=== PATIENT | male | born 1955 | race Caucasian/White ===

== ENCOUNTER 2024-11-04 13:28 | Emergency (ER) | payer SELFPAY ==
[~2024-11-04] VITALS: Ht 185.4 cm; Wt 77.7 kg
[2024-11-04 13:33] VITALS: BP 106/78; PULSE 96; RESP 18; TEMP 97.4; O2SAT 97
[2024-11-04 14:56] LABS: Nucleated Red Blood Cells % 0.0 %
[2024-11-04 14:58] LABS: Hematocrit 32.8 % (41.0-53.0); Hemoglobin 11.5 g/dL (13.5-17.5); Mean Corpuscular Hemoglobin 35.8 pg (28.0-32.0); Mean Corpuscular Volume 102.4 fL (80.0-100.0)
[2024-11-04 15:14] LABS: Alkaline Phosphatase 80 U/L (46-116); Anion Gap 3 (5-15); BUN/Creatinine Ratio 10.1 (10.0-20.0); Bilirubin, Total 0.8 mg/dL (0.2-1.0); Blood Urea Nitrogen 14 mg/dL (9-23); Carbon Dioxide 24 mmol/L (20-31); Lipase 22 U/L (12-53); Potassium 4.1 mmol/L (3.5-5.1); Sodium 138 mmol/L (136-145); Total Protein 6.8 g/dL (5.7-8.2)
[2024-11-04 15:16] LABS: Alanine Aminotransferase < 9 U/L (7-40); Albumin 2.7 g/dL (3.2-4.8); Calcium 8.3 mg/dL (8.7-10.4); Chloride 111 mmol/L (98-107); Glucose 111 mg/dL (74-106)
--- NOTE | 2024-11-04 15:37 | ED.PDOC ---
History of Present Illness HPI Comments A 69 YEAR OLD MALE PRESENTS TO THE ED WITH COMPLAINT OF ABDOMINAL DISTENTION THAT STARTED 2 MONTHS AGO. PATIENT REPORTS HISTORY OF PARACENTESIS WITH THE LAST ONE BEING DONE 5 WEEKS AGO AT [facility]. PATIENT MENTIONS HE HAD SWELLING TO LOWER EXTREMITIES THEN WELL BUT SINCE THE DRAINAGE, SWELLING TO LEGS HAS GONE DOWN. PATIENT DENIES MEDICAL HISTORY AND ADMITS TO TOBACCO AND ALCOHOL USE. PT REQUESTS A PARACENTESIS TO BE DONE TODAY. PATIENT DENIES FEVER, CHILLS, SHORTNESS OF BREATH, CHEST PAIN, NAUSEA, VOMITING, HEADACHE, OR OTHER COMPLAINTS. NO OTHER SYMPTOMS OR MODIFYING FACTORS AT THIS TIME. PATIENT IS ALERT, ORIENTED X 4, AND HAS STEADY GAIT. Chief Complaint: Abdominal Pain Time Seen by MD: 15:14 Reviewed Notes: Nurses Notes, Medications, Allergies Information Source: Patient Mode of Arrival: Wheelchair Timing: Hours Duration: Since onset Medication Refill: For: Other (REQUESTS PARACENTESIS ) Past Medical History PAST MEDICAL HISTORY: Liver Surgical History: Unknown Family History Family History: Reviewed,noncontributory to illness, Unknown Social History Smoker: Cigarettes Alcohol: Heavy Drugs: Denies Drug Use Lives In: Home Constitutional: denies: chills, diaphoresis, fatigue, fever, malaise, sweats, weakness, others EENTM: denies: blurred vision, double vision, ear bleeding, ear discharge, ear drainage, ear pain, ear ringing, eye pain, eye redness, hearing loss, mouth pain, mouth swelling, nasal discharge, nose bleeding, nose congestion, nose pain, photophobia, tearing, throat pain, throat swelling, voice changes, others Respiratory: denies: cough, hemoptysis, orthopnea, SOB at rest, shortness of breath, SOB with excertion, stridor, wheezing, others Cardiovascular: denies: chest pain, dizzy spells, diaphoresis, Dyspnea on exertion, edema, irregular heart beat, left arm pain, lightheadedness, palpitations, PND, syncope, others Gastrointestinal: reports: abdomen distended; denies: abdominal pain, blood streaked bowels, constipated, diarrhea, dysphagia, difficulty swallowing, hematemesis, melena, nausea, poor appetite, poor fluid intake, rectal bleeding, rectal pain, vomiting, others Genitourinary: denies: burning, dysuria, flank pain, frequency, hematuria, incontinence, penile discharge, penile sore, pain, testicle pain, testicle swelling, urgency, others Neurological: denies: dizziness, fainting, headache, left sided numbness, left sided weakness, numbness, paresthesia, pre-existing deficit, right sided numb ness, right sided weakness, seizure, speech problems, tingling, tremors, weakness, others Musculoskeletal: denies: back pain, gout, joint pain, joint swelling, muscle pain, muscle stiffness, neck pain, others Integumetry: denies: bruises, change in color, change in hair/nails, dryness, laceration, lesions, lumps, rash, wounds, others Allergic/Immunocompromised: denies: Difficulty Healing, Frequent Infections, Hives, Itching, others Hematologic/Lymphatic: denies: anemia, blood clots, easy bleeding, easy bruising, swollen glands, others Endocrine: denies: excessive hunger, excessive sweating, excessive thirst, excessive urination, flushing, intolerance to cold, intolerance to heat, unexplained weight gain, unexplained weight loss, others Psychiatric: denies: anxiety, bipolar disorder, depression, hopeless, panic disorder, schizophrenia, sleepless, suicidal, others All Other Systems: Reviewed and Negative Physical Exam General Appearance: No Apparent Distress, Normal HEENT: Normal ENT Inspection, PERRL/EOMI, Pharynx Normal, TMs Normal Neck: Full Range of Motion, Non-Tender, Normal, Normal Inspection Respiratory: Chest Non-Tender, Lungs Clear, No Accessory Muscle Use, No Respiratory Distress, Normal Breath Sounds Cardiovascular: No Edema, No JVD, No Murmur, No Gallop, Normal Peripheral Pulses, Regular Rate/Rhythm Breast Exam: Deferred Gastrointestinal: Distended (GENERAL ABD WITH TENDERNESS, NO GUARDING AND REBOUND TENDERNESS. ), No Organomegaly, No Pulsatile Mass, Normal Bowel Sounds, Soft Genitalia: Deferred Pelvic: Deferred Rectal: Deferred Extremities: No calf tenderness, Normal capillary refill, Normal inspection, Normal range of motion, Non-tender, No pedal edema Musculoskeletal : Apperance: Normal Neurologic: Alert, data conversion developer II-XII nml as Tested, No Motor Deficits, Normal Affect, Normal Mood, No Sensory Deficits Cerebellar Function: Normal Reflexes: Normal Skin: Dry, Normal Color, Warm Peripheral Pulses: 2+ carotid (R), 2+ carotid (L) Lymphatic: No Adenopathy Was a procedure done? Was a procedure done?: No Differential Dx Considerations may include: LIVER CIRRHOSIS, ASCITES , PARACENTESIS X-Ray, Labs, Meds, VS Vital Signs Date Time Temp Pulse Resp B/P (MAP) Pulse Ox O2 Delivery O2 Flow Rate FiO2 11/04/24 13:33 97.4 96 18 106/78 97 97.4 Lab Test 11/04/24 14:34 11/04/24 13:41 Range/Units White Blood Count 4.8 4.4-10.8 10^3/uL Red Blood Count 3.20 L 4.5-5.90 10^6/uL Hemoglobin 11.5 L 13.5-17.5 g/dL Hematocrit 32.8 L 41.0-53.0 % Mean Corpuscular Volume 102.4 H 80.0-100.0 fL Mean Corpuscular Hemoglobin 35.8 H 28.0-32.0 pg Mean Corpuscular Hemoglobin Concent 34.9 32.0-36.0 g/dL Red Cell Distribution Width 13.6 11.8-14.3 % Platelet Count 303 140-450 10^3/uL Mean Platelet Volume 7.0 6.9-10.8 fL Neutrophils (%) (Auto) 64.0 37.0-80.0 % Lymphocytes (%) (Auto) 14.1 10.0-50.0 % Monocytes (%) (Auto) 16.0 H 0.0-12.0 % Eosinophils (%) (Auto) 4.6 0.0-7.0 % Basophils (%) (Auto) 1.3 0.0-2.0 % Neutrophils # (Auto) 3.1 1.6-8.6 10 ^3/uL Lymphocytes # (Auto) 0.7 0.4-5.4 10 ^3/uL Monocytes # (Auto) 0.8 0-1.3 10 ^3/uL Eosinophils # (Auto) 0.2 0-0.8 10 ^3/uL Basophils # (Auto) 0.1 0-0.2 10 ^3/uL Nucleated Red Blood Cells 0.0 % Sodium Level 138 136-145 mmol/L Potassium Level 4.1 3.5-5.1 mmol/L Chloride Level 111 H 98-107 mmol/L Carbon Dioxide Level 24 20-31 mmol/L Anion Gap 3 L 5-15 Blood Urea Nitrogen 14 9-23 mg/dL Creatinine 1.38 H 0.700-1.30 mg/dL Glomerular Filtration Rate Calc 55 >90 mL/min BUN/Creatinine Ratio 10.1 10.0-20.0 Serum Glucose 111 H 74-106 mg/dL Calcium Level 8.3 L 8.7-10.4 mg/dL Total Bilirubin 0.8 0.2-1.0 mg/dL Aspartate Amino Transferase (AST) 18 13-40 U/L Alanine Aminotransferase (ALT) < 9 7-40 U/L Alkaline Phosphatase 80 46-116 U/L Total Protein 6.8 5.7-8.2 g/dL Albumin 2.7 L 3.2-4.8 g/dL Lipase 22 12-53 U/L POC Glucose 130 H 70-106 mg/dl X-Ray, Labs, Meds, VS Comment EXTERNAL MEDICAL RECORDS REVIEWED: [NONE] INDEPENDENT HISTORIANS: [NONE] SOCIAL DETERMINANTS OF HEALTH: [NONE] LABS ORDERED: CBC, CMP AND LIPASE REVIEWED AND INTERPRETED RESULTS: PENDING IMAGING ORDERED: NONE TREATMENTS ORDERED: NONE PROCEDURES PERFORMED: NONE CRITICAL CARE TIME: NONE SHARED DECISION MAKING: CONSULT WITH RADIOLOGY AND DR. KARIMI FOR PARACENTESIS BUT IS UNABLE TO BE DONE TODAY. PATIENT HAS TO BE ADMITTED TO THE HOSPITAL THEY ARE NOT AVAILABLE TO PERFORM PROCEDURE TODAY. DISCUSSED WITH PATIENT HOWEVER HE DOES NOT WANT TO BE ADMITTED TO THE HOSPITAL AND DECIDED TO SIGN AMA. ALL QUESTIONS ADDRESSED AT TIME OF CARE. Time of 1ST Reevaluation: 15:27 Reevaluation 1ST: Unchanged Patient Education/Counseling: Diagnosis, Treatment, Prognosis Family Education/Counseling: No Family Present SEPSIS Sepsis Screen Date sepsis recognized/suspect: Nov 04, 2024 Time Sepsis recognized/suspect: 1337 Recent Procedure: No (n) On Antibiotic Therapy: No Respiratory Rate >20: No Heart Rate >90: No Temp<36 C (96.8 F) or >38.3 C: No SBP <90 or MAP <65 mmHG: No New Acute Mental Status Change: No Is the patient on CPAP, BIPAP,: No Physician Orders Urinalysis (11/04/24 14:24) Vital Signs Date Time Temp Pulse Resp B/P (MAP) Pulse Ox O2 Delivery O2 Flow Rate FiO2 11/04/24 13:33 97.4 96 18 106/78 97 97.4 Laboratory Tests Test 11/04/24 14:34 White Blood Count 4.8 10^3/uL (4.4-10.8) Departure 1 Departure Time of Disposition: 15:27 Impression: Primary Impression: Liver cirrhosis Qualified Codes: K70.31 - Alcoholic cirrhosis of liver with ascites Additional Impressions: Ascites Qualified Codes: K70.31 - Alcoholic cirrhosis of liver with ascites History of abdominal paracentesis Disposition: LEFT AGAINST MEDICAL ADVICE Condition: Fair Critical Care Note Critical Care Time?: No Stability Stability form required: No I personally scribed for EVON VAZQUEZ ([email or web address]) on 11/04/24 at 15:37. Electronically submitted by Nina Banuelos ([facility]). EVON VAZQUEZ Nov 04, 2024 15:37
== END 2024-11-04 16:13 | disposition left against medical advice (07) ==
LOC: ER 13:28
DX: K70.31 Alcoholic cirrhosis of liver with ascites (principal); F17.210 Nicotine dependence, cigarettes, uncomplicated; Z76.0 Encounter for issue of repeat prescription
CPT/HCPCS: 36415; 80053; 82947; 82962; 83690; 85025

== ENCOUNTER 2024-11-10 09:48 | Inpatient (IN) | payer OTHER, MEDICARE ==
[~2024-11-10] VITALS: Ht 185.4 cm; Wt 79.0 kg
--- NOTE | 2024-11-10 10:35 | ED.PDOC ---
GI ASSESSMENT HPI Comments This is a 69-year-old male with past medical history of alcohol use disorder, coronary artery disease (status post CABG), came to the hospital due to abdominal pain and distention. Per patient, 6 weeks back he had a paracentesis with a [facility], after discharge she was feeling better for 1 week but progressively developed abdominal distention and discomfort. He also reports of shortness of breaths, decreased oral intake and unintentional weight loss (around 55 point within last year). He denies fever, chest pain, cough, or any bowel/bladder habit changes. Past medical history: Coronary artery disease (status post CABG), alcohol use disorder Home meds: Does not take any medicine Social history: History of heavy alcohol use disorder, smokes cigarettes (60 pack year history), denies any other drug use Chief Complaint: Abdominal Pain Time Seen by MD: 09:53 Allergies: Coded Allergies: NO KNOWN ALLERGIES (Unverified , 11/10/24) Mode of Arrival: Wheelchair Past Medical History PAST MEDICAL HISTORY: CAD, Liver Surgical History: CABG, Unknown Family History Family History: Reviewed,noncontributory to illness, Unknown Social History Smoker: Cigarettes Alcohol: Heavy Drugs: Denies Drug Use Lives In: Home Constitutional: reports: fatigue, weakness; denies: chills, diaphoresis, fever, malaise, sweats, others EENTM: denies: blurred vision, double vision, ear bleeding, ear discharge, ear drainage, ear pain, ear ringing, eye pain, eye redness, hearing loss, mouth pain, mouth swelling, nasal discharge, nose bleeding, nose congestion, nose pain, photophobia, tearing, throat pain, throat swelling, voice changes, others Respiratory: reports: SOB at rest, shortness of breath; denies: cough, hemoptysis, orthopnea, SOB with excertion, stridor, wheezing, others Cardiovascular: denies: chest pain, dizzy spells, diaphoresis, Dyspnea on exertion, edema, irregular heart beat, left arm pain, lightheadedness, palpitations, PND, syncope, others Gastrointestinal: reports: abdomen distended, abdominal pain, nausea Genitourinary: denies: burning, dysuria, flank pain, frequency, hematuria, incontinence, penile discharge, penile sore, pain, testicle pain, testicle swelling, urgency, others Neurological: denies: dizziness, fainting, headache, left sided numbness, left sided weakness, numbness, paresthesia, pre-existing deficit, right sided numbness, right sided weakness, seizure, speech problems, tingling, tremors, weakness, others Musculoskeletal: denies: back pain, gout, joint pain, joint swelling, muscle pain, muscle stiffness, neck pain, others Integumetry: denies: bruises, change in color, change in hair/nails, dryness, laceration, lesions, lumps, rash, wounds, others Allergic/Immunocompromised: denies: Difficulty Healing, Frequent Infections, Hives, Itching, others Hematologic/Lymphatic: denies: anemia, blood clots, easy bleeding, easy bruising, swollen glands, others Psychiatric: denies: anxiety, bipolar disorder, depression, hopeless, panic disorder, schizophrenia, sleepless, suicidal, others Physical Exam General Appearance: Cachectic, Moderate Distress HEENT: Normal ENT Inspection, Pharynx Normal, TMs Normal Neck: Full Range of Motion, Non-Tender, Normal, Normal Inspection Respiratory: Chest Non-Tender, Lungs Clear, No Accessory Muscle Use, No Respiratory Distress, Normal Breath Sounds Cardiovascular: No Edema, No JVD, No Murmur, No Gallop, Normal Peripheral Pulses, Regular Rate/Rhythm Breast Exam: Deferred Gastrointestinal: Diffuse, Distended, Soft, Tenderness Genitalia: Deferred Pelvic: Deferred Rectal: Deferred Extremities: No calf tenderness, Normal capillary refill, Normal inspection, Normal range of motion, Non-tender, No pedal edema Neurologic: Alert, audio production engineer II-XII nml as Tested, No Motor Deficits, Normal Affect, Normal Mood, No Sensory Deficits Cerebellar Function: Normal Reflexes: Normal Skin: Dry, Normal Color, Warm Lymphatic: No Adenopathy Was a procedure done? Was a procedure done?: No GI differential Dx Differential Diagnosis: Hepatitis X-Ray, Labs, Meds, VS Vital Signs Date Time Temp Pulse Resp B/P (MAP) Pulse Ox O2 Delivery O2 Flow Rate FiO2 11/10/24 11:04 98.3 94 17 94/59 (71) 98 98.3 11/10/24 10:04 89 11/10/24 09:50 97.8 97 20 97/70 98 97.8 Lab Test 11/10/24 11:23 Range/Units White Blood Count 5.5 4.4-10.8 10^3/uL Red Blood Count 3.33 L 4.5-5.90 10^6/uL Hemoglobin 11.8 L 13.5-17.5 g/dL Hematocrit 33.7 L 41.0-53.0 % Mean Corpuscular Volume 101.4 H 80.0-100.0 fL Mean Corpuscular Hemoglobin 35.5 H 28.0-32.0 pg Mean Corpuscular Hemoglobin Concent 35.0 32.0-36.0 g/dL Red Cell Distribution Width 13.7 11.8-14.3 % Platelet Count 350 140-450 10^3/uL Mean Platelet Volume 6.7 L 6.9-10.8 fL Neutrophils (%) (Auto) 71.3 37.0-80.0 % Lymphocytes (%) (Auto) 11.0 10.0-50.0 % Monocytes (%) (Auto) 13.8 H 0.0-12.0 % Eosinophils (%) (Auto) 3.3 0.0-7.0 % Basophils (%) (Auto) 0.6 0.0-2.0 % Neutrophils # (Auto) 4.0 1.6-8.6 10 ^3/uL Lymphocytes # (Auto) 0.6 0.4-5.4 10 ^3/uL Monocytes # (Auto) 0.8 0-1.3 10 ^3/uL Eosinophils # (Auto) 0.2 0-0.8 10 ^3/uL Basophils # (Auto) 0 0-0.2 10 ^3/uL Nucleated Red Blood Cells 0.0 % Prothrombin Time 10.9 9.3-11.8 sec Prothrombin Time INR 1.03 0.9-1.15 Activated Partial Thromboplast Time 28.4 24.5-34.5 SEC Sodium Level 140 136-145 mmol/L Potassium Level 4.2 3.5-5.1 mmol/L Chloride Level 112 H 98-107 mmol/L Carbon Dioxide Level 26 20-31 mmol/L Anion Gap 2 L 5-15 Blood Urea Nitrogen 14 9-23 mg/dL Creatinine 1.44 H 0.700-1.30 mg/dL Glomerular Filtration Rate Calc 53 >90 mL/min BUN/Creatinine Ratio 9.7 L 10.0-20.0 Serum Glucose 98 74-106 mg/dL Calcium Level 8.7 8.7-10.4 mg/dL Total Bilirubin 1.2 H 0.2-1.0 mg/dL Aspartate Amino Transferase (AST) 19 13-40 U/L Alanine Aminotransferase (ALT) < 9 7-40 U/L Alkaline Phosphatase 79 46-116 U/L Ammonia Pending Total Protein 7.1 5.7-8.2 g/dL Albumin 2.9 L 3.2-4.8 g/dL Time of 1ST Reevaluation: 12:33 Reevaluation 1ST: Unchanged Patient Education/Counseling: Diagnosis, Treatment, Prognosis, Need For Follow Up Family Education/Counseling: Diagnosis, Treatment, Prognosis, Need For Follow Up Comments Patient came to the hospital due to abdominal pain and distention. Patient was vitally stable. CBC showed mild anemia. CBC showed no significant finding. CT scan of abdomen shows massive ascites Physical examination was significant for distended abdomen. Patient will be admitted for inpatient care, paracentesis and possible expert opinion SEPSIS Sepsis Screen Date sepsis recognized/suspect: Nov 10, 2024 Time Sepsis recognized/suspect: 950 Recent Procedure: No On Antibiotic Therapy: No Respiratory Rate >20: No Heart Rate >90: Yes Temp<36 C (96.8 F) or >38.3 C: No SBP <90 or MAP <65 mmHG: No New Acute Mental Status Change: No Is the patient on CPAP, BIPAP,: No Physician Orders Abdomen Limited (11/10/24 10:29) Ammonia (11/10/24 10:29) Ct Ab Pel Wo Con-No Oral Or Iv (11/10/24 10:36) Paracentesis (11/10/24 10:47) Vital Signs Date Time Temp Pulse Resp B/P (MAP) Pulse Ox O2 Delivery O2 Flow Rate FiO2 11/10/24 11:04 98.3 94 17 94/59 (71) 98 98.3 11/10/24 10:04 89 11/10/24 09:50 97.8 97 20 97/70 98 97.8 Laboratory Tests Test 11/10/24 11:23 White Blood Count 5.5 10^3/uL (4.4-10.8) Departure 1 Departure Time of Disposition: 12:34 Impression: Primary Impression: Liver cirrhosis Additional Impression: Ascites Disposition: ADMITTED INPATIENT Admit to: Med Surg Condition: Guarded Critical Care Note Critical Care Time?: No Stability Stability form required: No Heart Score Heart Score: Heart Score Response (Comments) Value History N/A 0 EKG N/A 0 Age N/A 0 Risk Factors N/A 0 Troponin N/A 0 Total 0 JAYDEN WELLS Nov 10, 2024 10:35
--- NOTE | 2024-11-10 10:40 | ECG ---
[facility] Test Date: 2024-11-10 Test Time: 10:04:54 Pat Name: MELIA LEMUS Department: ED Room: Gender: M Concrete Inspector: dr PORTER: 1955 Requested By: JAYDEN WELLS Order Number: [id number] Reading MD: Measurements Intervals [place] Rate: 89 P: -20 MN: 204 QRS: 78 QRSD: 106 T: 50 QT: 395 QTc: 481 Interpretive Statements Sinus rhythm Low voltage, extremity and precordial leads Borderline prolonged QT interval Please click the below link to view image of tracing.
--- NOTE | 2024-11-10 10:57 | DVH ---
Limited Abdominal Ultrasound - Ascites Evaluation Clinical History: ascitis Comparison: None Technique/Findings/Impression: Limited sonographic evaluation of the abdomen was performed to assess for ascites. There is large ascites detected.
--- NOTE | 2024-11-10 11:34 | DVH ---
Exam: CT CT AB PEL WO CON-NO ORAL OR IV History: Ascitis, liver mass Comparison Study: Ultrasound of the abdomen performed same date. Technique: Multidetector spiral CT of the abdomen and pelvis was performed from lung bases to pubic s ymphysis. Imaging was performed without intravenous contrast. Coronal and sagittal multiplanar reform ats were obtained from the axial data set by the technologist. Radiation Dose : 1. Abdomen/Pelvis: CTDIvol 18.49 mGy, DLP 1085.5 mGy*cm. Findings: Evaluation of vasculature and solid organs is limited due to lack of intravenous contrast use. Lung Bases: Lung bases are clear. Visualized portions of the heart and pericardium are unremarkable. Liver: The liver is small and nodular in contour. Limited evaluation for hepatic mass without intrave nous contrast. Gallbladder and Biliary Tree: The gallbladder is surgically absent. No intrahepatic or extrahepatic b iliary ductal dilatation. There is pneumobilia. Spleen: Unremarkable Pancreas: The pancreas is grossly unremarkable. Adrenal Glands: Unremarkable Kidneys: Kidneys are unremarkable without calculi or hydronephrosis. GI tract: There is a small hiatal hernia. No evidence of small bowel wall thickening or abnormal dila tation to suggest bowel obstruction. Collapse versus mucosal thickening of the sigmoid colon. No find ings to suggest acute appendicitis. Peritoneum/mesentery/retroperitoneum. No evidence of free intraperitoneal air. There is large volume ascites. Lymph nodes: No evidence of lymphadenopathy. Abdominal Wall: There are atherosclerotic calcifications in the aorta. Vasculature: The visualized abdominal aorta is normal in size and caliber. Evaluation of abdominal a nd pelvic vessels is limited due to lack of intravenous contrast. There are atherosclerotic calcifica tions in the aorta. Urinary Bladder: Grossly unremarkable for degree of distention. Pelvic Organs: Unremarkable Musculoskeletal: No aggressive focal bony lesions, acute fractures or dislocation. There are degenera tive changes in the lumbar spine at L5-S1. Status post median sternotomy. IMPRESSION: 1. Cirrhosis. 2. Limited evaluation for hepatic mass without intravenous contrast. 3. Mucosal thickening of the colon may be related to underdistention or portal colopathy. Colitis is not excluded. 4. Large volume ascites. 5. Cholecystectomy. Pneumobilia which can be seen post cholecystectomy.
[2024-11-10 11:38] LABS: Hematocrit 33.7 % (41.0-53.0); Hemoglobin 11.8 g/dL (13.5-17.5); Mean Corpuscular Hemoglobin 35.5 pg (28.0-32.0); Mean Corpuscular Volume 101.4 fL (80.0-100.0); Nucleated Red Blood Cells % 0.0 %
[2024-11-10 11:54] LABS: INR 1.03 (0.9-1.15); Partial Thromboplastin Time 28.4 SEC (24.5-34.5); Prothrombin Time 10.9 sec (9.3-11.8)
[2024-11-10 11:56] LABS: Alkaline Phosphatase 79 U/L (46-116); Anion Gap 2 (5-15); BUN/Creatinine Ratio 9.7 (10.0-20.0); Blood Urea Nitrogen 14 mg/dL (9-23); Carbon Dioxide 26 mmol/L (20-31); Glucose 98 mg/dL (74-106); Potassium 4.2 mmol/L (3.5-5.1); Sodium 140 mmol/L (136-145); Total Protein 7.1 g/dL (5.7-8.2)
[2024-11-10 11:57] LABS: Alanine Aminotransferase < 9 U/L (7-40); Albumin 2.9 g/dL (3.2-4.8); Bilirubin, Total 1.2 mg/dL (0.2-1.0); Calcium 8.7 mg/dL (8.7-10.4); Chloride 112 mmol/L (98-107)
--- NOTE | 2024-11-10 15:25 | DVHHP2 ---
History of Present Illness Reason for Visit: Abdominal pain History of Present Illness 69-year-old male past medical history alcohol use last use two months ago he has been diagnosed with liver cirrhosis he has a history CAD status post CABG unsure his other medical problems he denies any other further problems but he states it at [place] five weeks ago he had a paracentesis he comes here requesting paracentesis in wants to be discharged home when speaking with the patient he does not know that he have any liver masses or any abdominal issues in the past he denies any chest pain in his shortness of the breath but his information provided to me he is very limited. He states he has a lot of fluid in his abdomen he has not did not any follow up with GI on discharge he is currently not taking any medications when evaluating patient's labs and imaging looks like hemoglobin was 11.8 33.7 creatinine was 1.44 total bili is 1.2 albumin was low at 2.9 otherwise CBC and CMP unremarkable CT scan abdomen pelvis shows cirrhosis hepatic mass colitis large vomiting volume ascites which I we will admit and ask for paracentesis we will also do a liver ultrasound to evaluate the mass and order some labs. We will admit for further workup and care Past Medical History See HPI above Past Surgical History See HPI above Family History Reviewed, non-contributory to the management of this case. Past Social History The patient lives at home, denies smoking, alcohol or illicit drugs abuse. Review of Systems Constitutional: No: Fever, Chills, Sweats, Weakness, Malaise, Other Eyes: No: Pain, Vision change, Conjunctivae inflammation, Eyelid inflammation, Other, Redness ENT: No: Ear pain, Ear discharge, Nose pain, Nose discharge, Nose congestion, Mouth pain, Mouth swelling, Throat pain, Throat swelling, Other Respiratory: No: Cough, Dry, Shortness of breath, SOB with excertion, Wheezing, Hemoptysis, Pleuritic Pain, Sputum, Wheezing, Other Cardiovascular: No: Chest Pain, Palpitations, Orthopnea, Paroxysmal Noc. Dyspnea, Edema, Lt Headedness, Other Gastrointestinal: Abdominal Pain; No: Nausea, Vomiting, Diarrhea, Constipation, Melena, Hematochezia, Other Genitourinary: No Dysuria, No Frequency, No Incontinence, No Hematuria, No Retention, No Other Musculoskeletal: No: other, neck pain, shoulder pain, arm pain, back pain, hand pain, leg pain, foot pain Skin: No: Rash, Lesions, Jaundice, Bruising, Other Neurological: No: Weakness, Numbness, Incoordination, Change in speech, Confusion, Seizures, Other Allergies: Coded Allergies: NO KNOWN ALLERGIES (Unverified , 11/10/24) Exam Vital Signs Vital Signs Date Time Temp Pulse Resp B/P (MAP) Pulse Ox O2 Delivery O2 Flow Rate FiO2 11/10/24 11:04 98.3 94 17 94/59 (71) 98 98.3 General Appearance: Alert, Oriented X3, Cooperative, Other (Angry and thing in his appearance) HEENT: Atraumatic, PERRLA, EOMI, Mucous membr. moist/pink Respiratory: Clear to auscultation, Normal air movement Cardiovascular: Regular rate, Normal S1, Normal S2, No murmurs Abdominal: Other (Abdomen Bhupinder slightly for the stay in the no guarding no rebound tenderness) Extremities: No clubbing, No cyanosis, No edema, Normal pulses, No tenderness/swelling Skin: No rashes, No breakdown, No significant lesion Neuro: Other (Neuro nonfocal) Psych/Mental Status: Mental status NL, Mood NL Labs/Xrays CT scan abdomen pelvis shows cirrhosis hepatic mass colitis large volume ascites Ascites ultrasound shows large volume I reviewed labs, imaging CT scan abdomen pelvis, EKG and all diagnostic studies on this patient from ED records and the medical chart Labs Test 11/10/24 11:23 Range/Units White Blood Count 5.5 4.4-10.8 10^3/uL Red Blood Count 3.33 L 4.5-5.90 10^6/uL Hemoglobin 11.8 L 13.5-17.5 g/dL Hematocrit 33.7 L 41.0-53.0 % Mean Corpuscular Volume 101.4 H 80.0-100.0 fL Mean Corpuscular Hemoglobin 35.5 H 28.0-32.0 pg Mean Corpuscular Hemoglobin Concent 35.0 32.0-36.0 g/dL Red Cell Distribution Width 13.7 11.8-14.3 % Platelet Count 350 140-450 10^3/uL Mean Platelet Volume 6.7 L 6.9-10.8 fL Neutrophils (%) (Auto) 71.3 37.0-80.0 % Lymphocytes (%) (Auto) 11.0 10.0-50.0 % Monocytes (%) (Auto) 13.8 H 0.0-12.0 % Eosinophils (%) (Auto) 3.3 0.0-7.0 % Basophils (%) (Auto) 0.6 0.0-2.0 % Neutrophils # (Auto) 4.0 1.6-8.6 10 ^3/uL Lymphocytes # (Auto) 0.6 0.4-5.4 10 ^3/uL Monocytes # (Auto) 0.8 0-1.3 10 ^3/uL Eosinophils # (Auto) 0.2 0-0.8 10 ^3/uL Basophils # (Auto) 0 0-0.2 10 ^3/uL Nucleated Red Blood Cells 0.0 % Prothrombin Time 10.9 9.3-11.8 sec Prothrombin Time INR 1.03 0.9-1.15 Activated Partial Thromboplast Time 28.4 24.5-34.5 SEC Sodium Level 140 136-145 mmol/L Potassium Level 4.2 3.5-5.1 mmol/L Chloride Level 112 H 98-107 mmol/L Carbon Dioxide Level 26 20-31 mmol/L Anion Gap 2 L 5-15 Blood Urea Nitrogen 14 9-23 mg/dL Creatinine 1.44 H 0.700-1.30 mg/dL Glomerular Filtration Rate Calc 53 >90 mL/min BUN/Creatinine Ratio 9.7 L 10.0-20.0 Serum Glucose 98 74-106 mg/dL Calcium Level 8.7 8.7-10.4 mg/dL Total Bilirubin 1.2 H 0.2-1.0 mg/dL Aspartate Amino Transferase (AST) 19 13-40 U/L Alanine Aminotransferase (ALT) < 9 7-40 U/L Alkaline Phosphatase 79 46-116 U/L Ammonia < 10 L 11-32 umol/L Total Protein 7.1 5.7-8.2 g/dL Albumin 2.9 L 3.2-4.8 g/dL SEPSIS Sepsis Screen Date sepsis recognized/suspect: Nov 10, 2024 Time Sepsis recognized/suspect: 950 Recent Procedure: No On Antibiotic Therapy: No Respiratory Rate >20: No Heart Rate >90: Yes Temp<36 C (96.8 F) or >38.3 C: No SBP <90 or MAP <65 mmHG: No New Acute Mental Status Change: No Is the patient on CPAP, BIPAP,: No Physician Orders Abdomen Limited (11/10/24 10:29) Ct Ab Pel Wo Con-No Oral Or Iv (11/10/24 10:36) Admit (11/10/24 15:20) Allergies (11/10/24 15:20) Code Status (11/10/24 15:20) 2 Gm Sodium Diet (11/10/24 Dinner) Ondansetron Hcl (Zofran) (11/10/24 15:30) Docusate Sodium Capsule (Colace Capsule) (11/10/24 15:30) Complete Blood Count (11/11/24 04:00) Comprehensive Metabolic Panel (11/11/24 04:00) Condition: Stable (11/10/24 15:20) BRP (11/10/24 15:20) Morphine Sulfate Injection (11/10/24 15:30) Sequential Compression Device (11/10/24 ) Nitroglycerin Sublingual (Ntrostat Subli (11/10/24 15:30) Stat Ekg For Chest Pain (11/10/24 15:20) Notify Md Of Changes From Base (11/10/24 15:20) Showroom Executive Director For 24 Hours (11/10/24 15:20) Emergency Dysrhythmia Protocol (11/10/24 15:20) Rhythm Strips Once Every Shift (11/10/24 15:20) Oxygen By Nasal Cannula (11/10/24 15:20) Paracentesis (11/10/24 15:20) Lactate Dehydrogenase, Fluid (11/10/24 15:20) Protein, Body Fluid (11/10/24 15:20) Vital Signs Date Time Temp Pulse Resp B/P (MAP) Pulse Ox O2 Delivery O2 Flow Rate FiO2 11/10/24 11:04 98.3 94 17 94/59 (71) 98 98.3 11/10/24 10:04 89 11/10/24 09:50 97.8 97 20 97/70 98 97.8 Laboratory Tests Test 11/10/24 11:23 White Blood Count 5.5 10^3/uL (4.4-10.8) Assessment/Plan Assessment/Plan acute on chronic etoh cirrhosis with ascites us found large ascites Ordered paracentesis with cultures by IR Strict I/O's Monitor Hepatic panel Continue Lasix and spirolactone Ordered Protonix Acute abdominal pain likely from ascites found on us ordered morphine as needed for pain acute hepatic mass found on ct scan ordered liver us fu results ordered alpha feta protein cea and ca 125 acute colitiis ordered zosyn for now acute low albumin ordered albumin for now Acute NERIS Strict I&Os Urine sodium and creatinine to check FENA If worsening consider renal consult chronic problems Liver cirrhosis from etoh use cad s/p cabg fen/ppx protonix diet no dvt ppx since pending procedure scd hl plan admit to tele for ascites and abd pain Plan discussed with: Patient My Orders Orders - KEMI PERRY DNP Procedure Category Date Status Time Admit ADMIT 11/10/24 Verified 15:20 Allergies [facility] 11/10/24 Verified 15:20 Code Status CODE 11/10/24 Verified 15:20 2 Gm Sodium Diet DIET 11/10/24 Verified Dinner Ondansetron Hcl PHA 11/10/24 Verified (Zofran) 15:30 Docusate Sodium PHA 11/10/24 Verified Capsule (Colace 15:30 Complete Blood Count LAB 11/11/24 Verified 04:00 Comprehensive LAB 11/11/24 Verified Metabolic Panel 04:00 Condition: Stable [facility] 11/10/24 Verified 15:20 BRP [facility] 11/10/24 Verified 15:20 Morphine Sulfate PHA 11/10/24 Verified Injection 15:30 Sequential [facility] 11/10/24 Verified Compression Device Nitroglycerin [facility] 11/10/24 Verified Sublingual (Ntrostat 15:30 Stat Ekg For Chest [facility] 11/10/24 Verified Pain 15:20 Notify Md Of Changes [facility] 11/10/24 Verified From Base 15:20 Showroom Executive Director For [facility] 11/10/24 Verified 24 Hours 15:20 Emergency Dysrhythmia [facility] 11/10/24 Verified Protocol 15:20 Rhythm Strips Once [facility] 11/10/24 Verified Every Shift 15:20 Oxygen By Nasal RT 11/10/24 Verified Cannula 15:20 Paracentesis US 11/10/24 Verified 15:20 Lactate LAB 11/10/24 Verified Dehydrogenase, Fluid 15:20 Protein, Body Fluid LAB 11/10/24 Verified 15:20 Date of Service: Nov 10, 2024 Billing Provider: KEMI PERRY DNP Common Visit Codes: [id number] INP/OBS CARE (HIGH) KEMI PERRY DNP Nov 10, 2024 15:25
[2024-11-10] MEDS ORDERED: DOCUSATE SOD 100 MG CAP PO PRN (15:30)
[2024-11-10] MEDS ORDERED: ONDANSETRON HCL 4 MG/2 ML VIAL IV PRN (15:30)
[2024-11-10] MEDS ORDERED: MORPHINE SULFATE INJ 2 MG/ml SYRG IV PRN (15:30)
[2024-11-10] MEDS ORDERED: NITROGLYCERIN 0.4 MG SL TAB SL PRN (15:30)
--- NOTE | 2024-11-10 16:52 | DVH ---
ULTRASOUND ABDOMEN, LIMITED RIGHT UPPER QUADRANT: REASON FOR EXAM: eval for liver mass found on ct scan TECHNIQUE: Real-time sector scans in the transverse and longitudinal planes were obtained through th e right upper quadrant of the abdomen. FINDINGS: The liver is echogenic and nodular consistent with cirrhosis. There is no intrahepatic no r extrahepatic biliary ductal dilatation. No hepatic mass is identified. The common bile duct is not seen. The gallbladder is absent. There is no sonographic johnson's sign. The visualized portion of the pancreas is unremarkable. The right kidney measures 8.6 cm. No hydronephrosis or nephrolithiasis is identified. There is no e vidence of right renal mass or cyst. The visualized portions of the abdominal aorta demonstrate no evidence of aneurysmal dilatation. The visualized inferior vena cava is unremarkable. There is moderate ascites. IMPRESSION: Cirrhotic liver morphology. No hepatic mass is identified with ultrasound. Moderate ascites
[2024-11-10 18:20] VITALS: PULSE 93; RESP 19; O2SAT 100
[2024-11-10 19:30] VITALS: PULSE 92; RESP 21; O2SAT 96
[2024-11-10] MEDS: ALBUMIN 25% 100 ML IV SCH (19:48)
[2024-11-10] MEDS: PIPERACILLIN-TAZOB 3.375GM 100 ML IV ONE (20:50)
[2024-11-10 21:50] VITALS: BP 103/66; PULSE 84; RESP 16; TEMP 98; O2SAT 91
[2024-11-10 22:40] VITALS: PULSE 84; RESP 16; O2SAT 91
[2024-11-11] VITALS (7 sets, daily range): BP systolic 77–98; BP diastolic 50–72; PULSE 65–86; RESP 14–19; TEMP 36.8; O2SAT 95–98
[2024-11-11 04:28] LABS: Hematocrit 26.3 % (41.0-53.0); Hemoglobin 9.5 g/dL (13.5-17.5); Mean Corpuscular Hemoglobin 39.9 pg (28.0-32.0); Mean Corpuscular Volume 110.3 fL (80.0-100.0); Nucleated Red Blood Cells % 0.1 %
[2024-11-11 04:43] LABS: Alkaline Phosphatase 57 U/L (46-116); Anion Gap 3 (5-15); Carbon Dioxide 22 mmol/L (20-31); Potassium 4.1 mmol/L (3.5-5.1); Sodium 139 mmol/L (136-145)
[2024-11-11 04:44] LABS: BUN/Creatinine Ratio 8.4 (10.0-20.0); Bilirubin, Total 0.9 mg/dL (0.2-1.0); Blood Urea Nitrogen 11 mg/dL (9-23); Chloride 114 mmol/L (98-107)
[2024-11-11 04:45] LABS: Alanine Aminotransferase < 9 U/L (7-40); Albumin 2.3 g/dL (3.2-4.8); Calcium 8.0 mg/dL (8.7-10.4); Total Protein 5.4 g/dL (5.7-8.2)
[2024-11-11 04:51] LABS: Glucose 76 mg/dL (74-106)
[2024-11-11] MEDS: PIPERACILLIN-TAZOB 3.375GM 100 ML IV SCH (05:00)
[2024-11-11 05:04] LABS: Macrocytosis Slight
--- NOTE | 2024-11-11 11:31 | DVHPN2 ---
Subjective 69-year-old male who was admitted for abdominal distention, he says he wants to have paracentesis He has a done 2 months ago at [facility] for the 1st time Changes from previous H/P or p: Changes Eyes: No Pain, No Vision change, No Conjunctivae inflammation, No Eyelid inflammation, No Other, No Redness ENT: No Ear pain, No Ear discharge, No Nose pain, No Nose discharge, No Nose congestion, No Mouth pain, No Mouth swelling, No Throat pain, No Throat swelling, No Other Cardiovascular: No Chest Pain, No Palpitations, No Orthopnea, No Paroxysmal Noc. Dyspnea, No Edema, No Lt Headedness, No Other Respiratory: No Cough, No Dry, No Shortness of breath, No SOB with excertion, No Wheezing, No Hemoptysis, No Pleuritic Pain, No Sputum, No Other Gastrointestinal: No Nausea, No Vomiting; Abdominal Pain; No Diarrhea, No Constipation, No Melena, No Hematochezia, No Other Genitourinary: No Dysuria, No Frequency, No Incontinence, No Hematuria, No Retention, No Other Musculoskeletal: No other, No neck pain, No shoulder pain, No arm pain, No back pain, No hand pain, No leg pain, No foot pain Skin: No Rash, No Lesions, No Jaundice, No Bruising, No Other Objective Vitals Vital Signs Date Time Temp Pulse Resp B/P (MAP) Pulse Ox O2 Delivery O2 Flow Rate FiO2 11/11/24 08:37 97.7 77 19 77/50 (59) 98 97.7 11/11/24 08:00 Room Air* 0 21 Intake/Output Intake and Output 11/11/24 07:00 Intake Total 300 ml Output Total 200 ml Balance 100 ml Intake Oral 200 ml IV Total 100 ml Output Urine Total 200 ml General Appearance: Alert, Oriented X3, Cooperative, No acute distress Lungs: Clear to auscultation, Normal air movement Cardiovascular: Regular rate, Normal S1, Normal S2 Abdomen: Normal bowel sounds, Soft, No tenderness Extremities: No edema Medications Current Medications Medications Dose Ordered Sig/Laura Route Start Time Stop Time Status Last Admin Dose Admin Ondansetron HCl 4 mg Q4HP PRN IV 11/10/24 15:30 Docusate Sodium 100 mg BIDPRN PRN PO 11/10/24 15:30 Morphine Sulfate 2 mg Q4HPRN PRN IV 11/10/24 15:30 Nitroglycerin 0.4 mg Q5MINP PRN SL 11/10/24 15:30 Piperacillin Sod/ Tazobactam Sod 100 ml @ 25 mls/hr Q8H IV 11/11/24 04:00 11/11/24 05:00 25 MLS/HR Laboratory Results Laboratory Tests 11/11/24 03:33 Chemistry Test 11/11/24 03:33 Albumin 2.3 g/dL (3.2-4.8) L Calcium Level 8.0 mg/dL (8.7-10.4) L Total Protein 5.4 g/dL (5.7-8.2) L LFT Test 11/11/24 03:33 Alanine Aminotransferase (ALT) < 9 U/L (7-40) Alkaline Phosphatase 57 U/L (46-116) Aspartate Amino Transferase (AST) 17 U/L (13-40) Total Bilirubin 0.9 mg/dL (0.2-1.0) Assessment/Plan Assessment/Plan Liver cirrhosis Ascites Abdominal pain and distention due to ascites Hypoalbuminemia Acute kidney injury Chronic anemia , microcytic Alcoholic liver disease Plan Consult Radiology for paracentesis Albumin Monitor closely Discharge planning once the paracentesis is done Full code Advance directives discussed for 16 minute Plan discussed with: Patient My Orders Orders - BEL LORENZO MD Procedure Category Date Status Time * Radiologist Consult CONS 11/11/24 Transmitted 10:28 Date of Service: Nov 11, 2024 Billing Provider: BEL LORENZO MD Common Visit Codes: [id number] INP/OBS CARE(HIGH) Secondary Visit Codes: [id number] CARE PLAN 30 MINUTES BEL LORENZO MD Nov 11, 2024 11:30
[2024-11-11] MEDS ORDERED: SPIR25TA PO (16:10)
[2024-11-11] MEDS ORDERED: FURO20TA4 PO (16:10)
[2024-11-11] MEDS ORDERED: ALBUMIN 25% 100 ML IV ONE (16:15)
--- NOTE | 2024-11-11 16:18 | DVHDS2 ---
Discharge Summary Date of Admission Nov 10, 2024 at 15:20 Date of Discharge: Nov 11, 2024 Labs/Diagnostic Data: Laboratory Results Test 11/11/24 03:33 11/10/24 17:27 11/10/24 11:23 White Blood Count 3.9 10^3/uL (4.4-10.8) Red Blood Count 2.39 10^6/uL (4.5-5.90) Hemoglobin 9.5 g/dL (13.5-17.5) Hematocrit 26.3 % (41.0-53.0) Mean Corpuscular Volume 110.3 fL (80.0-100.0) Mean Corpuscular Hemoglobin 39.9 pg (28.0-32.0) Mean Corpuscular Hemoglobin Concent 36.2 g/dL (32.0-36.0) Red Cell Distribution Width 14.1 % (11.8-14.3) Platelet Count 250 10^3/uL (140-450) Mean Platelet Volume 6.7 fL (6.9-10.8) Neutrophils (%) (Auto) 61.0 % (37.0-80.0) Lymphocytes (%) (Auto) 14.2 % (10.0-50.0) Monocytes (%) (Auto) 17.3 % (0.0-12.0) Eosinophils (%) (Auto) 6.1 % (0.0-7.0) Basophils (%) (Auto) 1.4 % (0.0-2.0) Neutrophils # (Auto) 2.4 10 ^3/uL (1.6-8.6) Lymphocytes # (Auto) 0.6 10 ^3/uL (0.4-5.4) Monocytes # (Auto) 0.7 10 ^3/uL (0-1.3) Eosinophils # (Auto) 0.2 10 ^3/uL (0-0.8) Basophils # (Auto) 0.1 10 ^3/uL (0-0.2) Nucleated Red Blood Cells 0.1 % Platelet Estimate Adequate Macrocytosis Slight Sodium Level 139 mmol/L (136-145) Potassium Level 4.1 mmol/L (3.5-5.1) Chloride Level 114 mmol/L (98-107) Carbon Dioxide Level 22 mmol/L (20-31) Anion Gap 3 (5-15) Blood Urea Nitrogen 11 mg/dL (9-23) Creatinine 1.31 mg/dL (0.700-1.30) Glomerular Filtration Rate Calc 59 mL/min (>90) BUN/Creatinine Ratio 8.4 (10.0-20.0) Serum Glucose 76 mg/dL (74-106) Calcium Level 8.0 mg/dL (8.7-10.4) Total Bilirubin 0.9 mg/dL (0.2-1.0) Aspartate Amino Transferase (AST) 17 U/L (13-40) Alanine Aminotransferase (ALT) < 9 U/L (7-40) Alkaline Phosphatase 57 U/L (46-116) Total Protein 5.4 g/dL (5.7-8.2) Albumin 2.3 g/dL (3.2-4.8) Prothrombin Time 10.9 sec (9.3-11.8) Prothrombin Time INR 1.03 (0.9-1.15) Activated Partial Thromboplast Time 28.4 SEC (24.5-34.5) Ammonia < 10 umol/L (11-32) Carcinoembryonic Antigen 2.80 ng/mL (<=5.0) Other Laboratory Tests 11/11/24 03:33 Brief Hx & Hospital Course: Final diagnoses: Liver cirrhosis Ascites Abdominal pain and distention due to ascites Hypoalbuminemia Acute kidney injury Chronic anemia , microcytic Alcoholic liver disease s/p paracentesis DC Home Take Aldactone 25 mg qd and Lasix 20 mg qd F/U with PCP [facility] Condition at Discharge: Stable Final Diagnosis/Problems List Liver cirrhosis Ascites Abdominal pain and distention due to ascites Hypoalbuminemia Acute kidney injury Chronic anemia , microcytic Alcoholic liver disease Discharge Disposition: Home SNF Discharge Will this Physician continue t: No Discharge Instruct/Medications Diet: Cardiac 2g Na,low cholest Activity: No Restrictions, As Tolerated Follow Up/Referral: PCP [facility] Medications: Lasix 20 mg qd Aldactone 25 mg qd Scheduled Furosemide (Furosemide), 20 MG PO DAILY Spironolactone (Aldactone), 25 MG PO DAILY Discharge Statement: "Patient was advised to return to the ER or call 911 if any headaches, dizziness, shortness of breath, chest pain, abdominal pain, bleeding, fevers, or worsening of medical condition. Patient was counseled about treatment plan, medications, possible side effects, patientverbalized understanding. All questions were answered to the best of my ability. This discharge took greater then 30 minutes in planning, reviewing documentation, counseling the patient, and discussing with other team members." ASSESSMENT ASSESSMENT Assessment Liver cirrhosis Ascites Abdominal pain and distention due to ascites Hypoalbuminemia Acute kidney injury Chronic anemia , microcytic Alcoholic liver disease Date of Service: Nov 11, 2024 Billing Provider: BEL LORENZO MD Common Visit Codes: [id number] DISCH DAY >30min BEL LORENZO MD Nov 11, 2024 16:17
--- NOTE | 2024-11-11 17:20 | DVH ---
PROCEDURE: ULTRASOUND GUIDED PARACENTESIS HISTORY: 69 Male requiring paracentesis. TECHNIQUE: The risks and benefits of the procedure including but not limited to bleeding, infection and injury t o abdominal organs were explained to the patient and written informed consent was obtained. Optimal site for puncture was determined using ultrasound and the area sterilized and draped. Using a 5 Romanian Yueh catheter, paracentesis was performed in the right lower quadrant abdomen. Approximate ly 9.6 liters of serous fluid was removed. The patient tolerated the procedure well. There were no immediate complications. IMPRESSION: Ultrasound-guided paracentesis with no immediate complications. Performed by Dr. Agudelo.
[2024-11-12] MEDS ORDERED: FUROSEMIDE 20 MG TAB PO SCH (10:00)
[2024-11-12] MEDS ORDERED: SPIRONOLACTONE 25 MG TAB PO SCH (10:00)
== END 2024-11-11 17:00 | disposition home or self-care (01) | DRG 433 ==
LOC: ER 09:48 → OVERFLOW 15:20 → CENTRAL 21:50
PROVIDERS: ADMIT Internal Medicine Geriatric Medicine; ATTEND Internal Medicine Geriatric Medicine
PROC: 0W9G3ZZ Drainage of Peritoneal Cavity, Percutaneous Approach (ICD-10-PCS; principal; 2024-11-11)
DX: K70.31 Alcoholic cirrhosis of liver with ascites (principal); N17.9 Acute kidney failure, unspecified; K52.9 Noninfective gastroenteritis and colitis, unspecified; E88.09 Other disorders of plasma-protein metabolism, not elsewhere classified; D63.8 Anemia in other chronic diseases classified elsewhere; F17.210 Nicotine dependence, cigarettes, uncomplicated; I25.10 Atherosclerotic heart disease of native coronary artery without angina pectoris; Z95.1 Presence of aortocoronary bypass graft
CPT/HCPCS: 36415; 74176; 76705; 76942; 80053; 82105; 82140; 82378; 83986; 85025; 85610; 85730; 86304; 87071; 87205; 89051; 93005; 96365; G0378; J2543; P9047